=== PATIENT | female | born 1975 | race African-American/Black ===

== ENCOUNTER 2021-10-09 14:54 | Emergency (ER) | payer OTHER ==
[~2021-10-09] VITALS: Ht 150 cm; Wt 72.0 kg
--- NOTE | 2021-10-09 15:53 | ED Cough/URI ---
General Chief Complaint: COVID19 Suspect/Confirmed Stated Complaint: CHILLS/MUSCLE PAIN/HEADACHE/LOSS OF TASTE/SMELL Nursing Triage Note: PT AMB TO TRIAGE W C/O [place]ACOCK, CHILLS, LOSS OF TASTE AND SMELL, COUGH, AND CONGESTION SX MONDAY. PT REPORTS SHE WAS EXPOSED TO COVID ON 09/30/21. PT A&OX4. Source: patient Exam Limitations: no limitations (GLORIA WYATT APRN) History of Present Illness Date Seen by Provider: Oct 09, 2021 Time Seen by Provider: 15:52 Initial Comments To ER with headache chills loss of taste smell and cough after exposure to positive Covid patient. Her symptoms began on 10/05/2021. She is unvaccinated. Timing/Duration: constant Severity/Quality: moderate Associated Symptoms: cough, fever/chills, muscle aches (GLORIA WYATT APRN) Allergies and Home Medications Allergies Coded Allergies: No Known Drug Allergies (Unverified , 10/09/21) Patient Home Medication List Home Medication List Reviewed: Yes (GLORIA WYATT APRN) Review of Systems Review of Systems Constitutional: see HPI, chills, fever, malaise, weakness EENTM: see HPI, nose congestion Respiratory: no symptoms reported Cardiovascular: no symptoms reported Genitourinary: no symptoms reported Musculoskeletal: see HPI, muscle pain Skin: no symptoms reported Psychiatric/Neurological: No Symptoms Reported Hematologic/Lymphatic: No Symptoms Reported (GLORIA WYATT APRN) Past Nvheyxz-Jjblog-Uriuqm Hx Patient Social History Tobacco Use?: No Use of E-Cig and/or Vaping dev: No Substance use?: No Alcohol Use?: No (GLORIA WYATT APRN) Immunizations Up To Date Influenza Vaccine Up-to-Date: No; Not Current First/Initial COVID19 Vaccinat: NONE Second COVID19 Vaccination Evaristo: NONE Third COVID19 Vaccination Date: NONE COVID19 Vaccine Front Office Java Developer: NONE (GLORIA WYATT APRN) Physical Exam Vital Signs - First Documented 10/09/21 15:04 Temp 37.5 Pulse 85 Resp 22 B/P (MAP) 135/78 (97) Pulse Ox 96 O2 Delivery Room Air (LENNY CUELLO DO) Capillary Refill : (GLORIA WYATT APRN) Height: '" Weight: lbs. oz. kg; 32.00 BMI Method: General Appearance: WD/WN, no apparent distress, other (Heart rate 96% room air) Neck: non-tender, full range of motion Respiratory: normal breath sounds, no respiratory distress, no accessory muscle use Cardiovascular: regular rate, rhythm, no murmur Gastrointestinal: normal bowel sounds, non tender, soft Neurologic/Psychiatric: alert, normal mood/affect, oriented x 3 Skin: normal color, warm/dry (GLORIA WYATT APRN) Progress/Results/Core Measures Suspected Sepsis SIRS Temperature: Pulse: 85 Respiratory Rate: 22 Blood Pressure 135 /78 Mean: 97 (GLORIA WYATT APRN) Results/Orders Lab Results Laboratory Tests Test 10/09/21 15:08 Range/Units Influenza Type A (RT-PCR) Not Detected Not Detecte Influenza Type B (RT-PCR) Not Detected Not Detecte SARS-CoV-2 RNA (RT-PCR) Detected H Not Detecte (LENNY CUELLO DO) Vital Signs/I&O 10/09/21 10/09/21 15:04 16:15 Temp 37.5 37.5 Pulse 85 75 Resp 22 20 B/P (MAP) 135/78 (97) 123/71 Pulse Ox 96 97 O2 Delivery Room Air Room Air (LENNY CUELLO DO) Vital Signs/I&O Capillary Refill : (GLORIA WYATT APRN) Blood Pressure Mean: 97 Departure Communication (Admissions) I discussed with her the monoclonal antibody infusion and she would like to proceed with getting this scheduled. I discussed with her that this is emergency use authorization by the FDA, benefits of treatment and alternatives to use. Discussed with her that today is Monday but they will be doing these on Monday. She will need to be quarantined until 10 days after symptom onset meaning she could go back out into the public and/or to work on 10/16/2021. (GLORIA WYATT APRN) Impression Primary Impression: COVID-19 Disposition: 01 HOME, SELF-CARE Condition: Stable Departure-Patient Inst. Decision time for Depature: 15:52 (GLORIA WYATT APRN) Patient Instructions: COVID-19 ED Add. Discharge Instructions: 1. Use Tylenol and ibuprofen for pain control. Expect fevers to come intermittently. Return to ER for any worsening. Nausea medication as needed. Hospital pharmacy department will call you on Monday with an appointment time either Monday or for the antibody infusion. Return to ER for any worsening. Quarantine until 10/15/2021 meaning you can go back out into the public and/or to work on 10/16/2021. Also, you are able to get vaccinated as soon as you are out of quarantine which would be 10/16/2021. All discharge instructions reviewed with patient and/or family. Voiced understanding. Work/School Note: Work Release Form Date Seen in the Emergency Department: Oct 09, 2021 Return to Work: Oct 16, 2021 ATTENDING PHYSICIAN NOTE: I WAS PHYSICALLY PRESENT ER PHYSICIAN WHEN THIS PATIENT WAS IN ER, BUT I WAS NOT INVOLVED IN ANY DECISION MAKING OR ANY CARE OF THIS PATIENT. (LENNY CUELLO DO) GLORIA WYATT APRN Oct 09, 2021 15:53 LENNY CUELLO DO Oct 10, 2021 06:04
[2021-10-09] MEDS ORDERED: RX-ONDANSETRON 4 MG ODT (ZOFRAN) PPK #4 PO STA (15:58)
[2021-10-09 16:15] VITALS: BP 123/71
== END 2021-10-09 16:15 | disposition home or self-care (01) ==
LOC: ER 14:58
DX: U07.1 COVID-19 (principal)
CPT/HCPCS: 87636; 99283

== ENCOUNTER → 2021-11-23 | Outpatient (CLI) | payer OTHER ==
[~2021-11-23] MED LIST: CATHETER FLUSH 10 ML SYR IV PRN; HOLD METFORMIN - RECEIVED CONTRAST 20 ML VIAL IV SCH; IOHEXOL 350 MG/ML 100 ML (OMNIPAQUE 350) VIAL IV ONE; NS 100 ML (IVPB) BAG IV ONE
--- NOTE | 2021-11-23 17:13 | Diagnostic Imaging Report ---
EXAMINATION: CT pelvis with intravenous contrast. TECHNIQUE: Multiple contiguous axial images were obtained through the pelvis after the uneventful administration of intravenous contrast. All CT scans use one or more of the following dose optimizing techniques: automated exposure control, MA and/or KvP adjustment based on patient size and exam type or iterative reconstruction. HISTORY: Sonogram showing possible septation in the bladder. COMPARISON: None available. FINDINGS: There is a septated 6.3 x 5.2 cm right adnexal cyst. An intrauterine device is present. There is no hydronephrosis. Urinary bladder is normal. Visualized bowel is normal in caliber without obstruction or inflammation. There is a small amount of free fluid in the pelvis. There is a tiny fat-containing umbilical hernia. No pelvic lymphadenopathy. Aorta is normal in caliber without aneurysm. There are no suspicious osseus lesions. IMPRESSION: 1. Normal urinary bladder. 2. There is a large right adnexal cyst with internal septations. This may be the structure that was identified on the sonogram. Gynecologic evaluation recommended as this could represent an ovarian neoplasm due to its size and complexity. Dictated by: Dictated on workstation # [id number]
== END ==
LOC: RAD 14:45
PROVIDERS: ATTEND Family Medicine
DX: N83.8 Other noninflammatory disorders of ovary, fallopian tube and broad ligament (principal)
CPT/HCPCS: 72193

== ENCOUNTER → 2021-12-21 | Outpatient (CLI) | payer OTHER ==
[~2021-12-21] MED LIST changes: -CATHETER FLUSH 10 ML SYR IV PRN; +GADOTERATE 0.5 MMOL/ML (CLARISCAN) 15 ML VIAL IV ONE; -HOLD METFORMIN - RECEIVED CONTRAST 20 ML VIAL IV SCH; -IOHEXOL 350 MG/ML 100 ML (OMNIPAQUE 350) VIAL IV ONE; -NS 100 ML (IVPB) BAG IV ONE
--- NOTE | 2021-12-21 12:04 | Diagnostic Imaging Report ---
PROCEDURE: MRI pelvis with and without contrast. TECHNIQUE: Multiplanar, multisequence MRI of the pelvis was performed with and without contrast. INDICATION: Adnexal mass. COMPARISON: CT pelvis from 11/23/2021. FINDINGS: The previously noted right adnexal septated cystic mass has resolved and was likely an ovarian cyst. The right ovary measures 3.8 x 2.7 x 3.5 cm and has two simple cysts/follicles within it. The left ovary measures 2.6 x 3.8 x 2.8 cm and has a single simple follicle within it. There is no concerning adnexal mass. There is a simple cyst within the anterior pelvis that sits in front of the uterus and upon the urinary bladder. This has homogeneous T2 hyperintensity, thin imperceptible wall, and no enhancement. This cystic mass measures 6.6 x 7.0 x 4.7 cm. Due to its close proximity to the urinary bladder, this likely accounted for the apparent septation within the urinary bladder. There is an additional simple-appearing cystic structure within the cul-de-sac located along the posterior aspect of the uterus and adjacent to the colon. This structure measures 4.9 x 2.4 x 2.3 cm and has no mural enhancement or septations. The uterus measures 10.0 x 4.7 x 6.5 cm. No concerning mass within the myometrium. There are a few hypoenhancing intramural masses that are likely fibroids. The largest is in the posterior aspect of the uterine body and measures 2.3 x 2.3 cm. The endometrium measures 0.8 cm in thickness. Normal thickness of the T2 hypointense junctional zone. Multiple nabothian gland cysts are present. No lymphadenopathy. No abnormality within the osseous structures of the pelvis. IMPRESSION: 1. No adnexal mass that would indicate neoplasm. The previously noted right adnexal septated mass has resolved and was a complicated ovarian cyst. 2. There are two separate simple cysts located within the pelvis. The largest located in the anterior pelvis in front of the uterus and sitting upon the urinary bladder. This has no enhancing solid components and is most likely a benign process such as an intraperitoneal inclusion cyst. The other cyst with the same imaging characteristics is located within the cul-de-sac. Dictated by: Dictated on workstation # [id number]
== END ==
LOC: RAD 08:00
PROVIDERS: ATTEND Obstetrics & Gynecology
DX: N94.89 Other specified conditions associated with female genital organs and menstrual cycle (principal); N83.209 Unspecified ovarian cyst, unspecified side
CPT/HCPCS: 72197

== ENCOUNTER 2022-01-31 05:29 | Outpatient (CLI) | payer OTHER ==
[~2022-01-31] VITALS: Ht 149.9 cm; Wt 72.7 kg
[2022-02-02] MEDS ORDERED: ZPR40C PO (11:13)
[2022-02-02] MEDS ORDERED: SERT150C PO (11:13)
[2022-02-07] MEDS ORDERED: IBUP-844 PO (08:03)
[2022-02-07] MEDS ORDERED: BENZ1LOZ61 MM (08:03)
[2022-02-07] MEDS ORDERED: DOCU100C37 PO (08:03)
[2022-02-07] MEDS ORDERED: HYDR-34 PO (08:03)
[2022-02-07] MEDS ORDERED: SMT80CT PO (08:03)
== END 2022-02-02 10:56 | disposition home or self-care (01) ==
LOC: PREOP 05:29
PROVIDERS: ATTEND Obstetrics & Gynecology
DX: Z01.818 Encounter for other preprocedural examination (principal)

== ENCOUNTER 2022-02-07 06:19 | Day surgery (SDC) | payer OTHER ==
[2022-02-07] VITALS (11 sets, daily range): BP systolic 101–119; BP diastolic 60–83
[~2022-02-07] VITALS: Ht 149.9 cm; Wt 72.7 kg
[~2022-02-07 06:19] MED LIST changes: -GADOTERATE 0.5 MMOL/ML (CLARISCAN) 15 ML VIAL IV ONE; +SERT150C PO; +ZPR40C PO
[2022-02-07] MEDS ORDERED: metroNIDAZOLE 500MG/100ML IVPB 100 ML IV ONE (06:30)
[2022-02-07] MEDS ORDERED: ceFAZolin 2 GM IV Premixed 50 ML IV ONE (06:30)
[2022-02-07] MEDS: LACTATED RINGERS 1,000 ML IV PRN ×2 (06:54→08:54)
[2022-02-07] MEDS ORDERED: BUPIVACAINE 0.25% 10 ML (SENSORCAINE) VIAL ONE (07:01)
[2022-02-07 07:05] LABS: BASOPHILS % (AUTO) 0 % (0-10); EOSINOPHILS % (AUTO) 0 % (0-10); HEMATOCRIT 31 % (35-52); HEMOGLOBIN 9.6 g/dL (11.5-16.0); LYMPHOCYTES # (AUTO) 1.6 10^3/uL (1.0-4.0); LYMPHOCYTES % (AUTO) 36 % (12-44); MEAN CORPUSCULAR HEMOGLOBIN 21 pg (25-34); MEAN CORPUSCULAR HGB CONC 31 g/dL (32-36); MEAN CORPUSCULAR VOLUME 69 fL (80-99); MEAN PLATELET VOLUME 10.9 fL (9.0-12.2); MONOCYTES # (AUTO) 0.6 10^3/uL (0.0-1.0); MONOCYTES % (AUTO) 13 % (0-12); NEUTROPHILS # (AUTO) 2.3 10^3/uL (1.8-7.8); NEUTROPHILS % (AUTO) 50 % (42-75); PLATELET COUNT 295 10^3/uL (130-400); WHITE BLOOD COUNT 4.5 10^3/uL (4.3-11.0)
[2022-02-07] MEDS ORDERED: LIDOCAINE PF 2% 5 ML (XYLOCAINE) VIAL ONE (07:35)
[2022-02-07] MEDS ORDERED: MIDAZOLAM 2 MG/2 ML (VERSED) VIAL ONE (07:35)
[2022-02-07] MEDS ORDERED: SEVOFLURANE (ULTANE) 15 ML INHAL SOLN ONE ×2 (07:35→09:50)
[2022-02-07] MEDS ORDERED: ONDANSETRON 4 MG/2 ML (SDV) Z0FRAN ONE (07:35)
[2022-02-07] MEDS ORDERED: HYDROmorphone 2 MG/ML VIAL (DILAUDID) ONE (07:35)
[2022-02-07] MEDS ORDERED: ROCURONIUM 10 MG/ML 5 ML SYRINGE IV ONE (07:35)
[2022-02-07] MEDS ORDERED: proPOfol 200 MG/20 ML (DIPRIVAN) VIAL IV ONE (07:35)
--- NOTE | 2022-02-07 07:58 | Progress Note-Pre Operative ---
Pre-Operative Progress Note H&P Reviewed The H&P was reviewed, patient examined and no changes noted. Date Seen by Provider: Feb 07, 2022 Time Seen by Provider: 07:50 Date H&P Reviewed: Feb 07, 2022 Time H&P Reviewed: 07:45 Pre-Operative Diagnosis: Pelvic Cyst, Menorrhagia ÁNGEL JUSTICE DO Feb 07, 2022 07:58
[2022-02-07] MEDS ORDERED: HYDROmorphone 2 MG/ML VIAL (DILAUDID) IV PRN (08:00)
[2022-02-07] MEDS ORDERED: CHLORASEPTIC LOZENGE MM PRN (08:00)
[2022-02-07] MEDS ORDERED: HYDROcodone/APAP 7.5 MG/325 MG (LORTAB, LORCET PLUS) TABLET PO PRN (08:00)
[2022-02-07] MEDS ORDERED: KETOROLAC 30 MG/ML VIAL IVP PRN (08:00)
[2022-02-07] MEDS ORDERED: SIMETHICONE 80 MG (MYLICON) CHEW PO PRN (08:00)
[2022-02-07] MEDS ORDERED: DOCUSATE SODIUM 100 MG (COLACE) CAP PO PRN (08:00)
[2022-02-07] MEDS ORDERED: ONDANSETRON 4 MG/2 ML (SDV) Z0FRAN IV PRN (08:00)
[2022-02-07] MEDS ORDERED: NALOXONE 0.4 MG/ML 1 ML (NARCAN) VIAL IV PRN (08:00)
[2022-02-07] MEDS ORDERED: ANTACID SUSP 30 ML UDC (MYLANTA) PO PRN (08:00)
[2022-02-07] MEDS ORDERED: ZOLPIDEM 5 MG (AMBIEN) TAB PO PRN (08:00)
--- NOTE | 2022-02-07 08:01 | Discharge Inst-Women's Service ---
Discharge Inst-Women's Serv Depart Medication/Instructions New, Converted or Re-Newed RX: Transmitted to Pharmacy Problems Reviewed?: Yes Consults/Follow Up Additional Follow Up: Yes Orders/Referrals Dr. Camejo/Tomeka in 7-[address] Camejo in 8 weeks Activity Activity: Activity as Tolerated Driving Instructions: No Driving for 1 Week NO SMOKING: NO SMOKING Nothing Inside Vagina: No Douching, No [place], No Tampons Diet Discharge Diet: No Restrictions Symptoms to Report to : Bleeding Excessive, Pain Increased, Fever Over 101 Degrees F, Vaginal Bleeding Increase, Questions/Concerns For Any Problems or Questions: Contact Your Physician Skin/Wound Care Infection Signs and Symptoms: Increased Redness, Foul Odor of Wound, Increased Drainage, Skin Itchy or Has a Rash, Increased Swelling, Temperature Above 101 F Operative Area Clean and Dry: Keep Incision Clean/Dry Stitches/[place]/Dermabond: Dermabond, Care of Stitches Bathing Instructions: ÁNGEL Smallwood DO Feb 07, 2022 08:01
[2022-02-07] MEDS ORDERED: BENZ1LOZ61 MM (08:03)
[2022-02-07] MEDS ORDERED: DOCU100C37 PO (08:03)
[2022-02-07] MEDS ORDERED: HYDR-34 PO (08:03)
[2022-02-07] MEDS ORDERED: IBUP-844 PO (08:03)
[2022-02-07] MEDS ORDERED: SMT80CT PO (08:03)
[2022-02-07] MEDS ORDERED: fentaNYL INJ 100 MCG/2 ML AMP ONE (08:16)
[2022-02-07] MEDS: LACTATED RINGERS 1,000 ML IV SCH ×3 (08:54→11:40)
[2022-02-07] MEDS ORDERED: KETOROLAC 30 MG/ML VIAL ONE (08:55)
[2022-02-07] MEDS ORDERED: GLYCOPYRROLATE 0.2 MG/ML (ROBINUL) 2 ML VIAL ONE (09:33)
[2022-02-07] MEDS ORDERED: NEOSTIGMINE 3 MG/3 ML VIAL ONE (09:33)
[2022-02-07] MEDS ORDERED: ONDANSETRON 4 MG/2 ML (SDV) Z0FRAN IVP PRN (10:15)
[2022-02-07] MEDS ORDERED: MEPERIDINE (DEMEROL) INJ 50 MG/ML IVP ONE (10:15)
[2022-02-07] MEDS ORDERED: HYDROmorphone 2 MG/ML VIAL (DILAUDID) IV ONE (10:15)
[2022-02-07] MEDS ORDERED: PROMETHAZINE INJ 25 MG/ML (PHENERGAN) AMP IVP ONE (10:15)
[2022-02-07] MEDS ORDERED: morphine INJ 10 MG/ML 1ML (SYR OR VIAL) IVP ONE (10:15)
--- NOTE | 2022-02-07 19:24 | OPERATIVE REPORT ---
DATE OF SERVICE: PREOPERATIVE DIAGNOSES: 1. A 46-year-old female with fibroid uterus. 2. Enlarged uterus. 3. Abnormal uterine bleeding. 4. Pelvic cyst. POSTOPERATIVE DIAGNOSES: 1. A 46-year-old female with fibroid uterus. 2. Enlarged uterus. 3. Abnormal uterine bleeding. 4. Pelvic cyst 5. Extensive filmy adhesions of the pelvic peritoneum. PROCEDURE: 1. Robotic-assisted total laparoscopic hysterectomy with bilateral salpingectomy and left oophorectomy, uterus weighing greater than 250 grams. 2. Lysis of adhesions, taking 30 minutes. SURGEON: Arturo Justice DO MACHINE STITCHER: Tomeka Shea DNP, was necessary for manipulation and retraction throughout the procedure. SPECIMEN SENT: Uterus, bilateral fallopian tubes, left ovary, and pelvic peritoneal cyst. INDICATIONS FOR PROCEDURE: This 46-year-old female patient who is consulted to our office for evaluation of heavy periods and a CT showing a pelvic cystic mass on MRI. This revealed a cystic mass in the anterior cul-de-sac, which was potentially concerning for neoplasm or malignancy. However, it did not appear to be associated with the adnexa on MRI. I discussed with the patient and her followup after the MRI proceeding with hysterectomy as she was wishing to do so due to her bleeding issues. No matter what the imaging showed as far as the cystoscope. She has had dealt with heavy bleeding issues for years and had tried other conservative alternative measures and wished to proceed with more definitive treatment for this. Risks of the procedure were discussed with the patient in detail including risk of bleeding, infection, damage to surrounding structures including, but not limited to bowel, bladder, ureter, kidneys, possible need for reoperation, postoperative complications that may occur, recovery timeframe, hospital stay, risk from anesthesia and even . After everything was discussed with the patient in detail, consent was obtained, the patient was taken to the operating room. OPERATIVE REPORT IN DETAIL: Once in the operating room, anesthesia was found to be adequate. She was placed in the dorsal lithotomy position and prepped and draped in normal sterile fashion where a timeout was performed. A Lopez catheter was placed using sterile technique. A weighted speculum was inserted to the patient's vagina. Right angle retractor was used to visualize the cervix, which an 0 Vicryl suture was placed anterior lip of the cervix and using my retraction with the suture. I then gently sound the uterine cavity, was found to be 8 cm. I selected an 8 cm Brina uterine manipulator tip and a 3.5 cm colpotomy ring. The manipulator tip was advanced into the uterus and the balloon was deployed and the colpotomy ring advanced around the vaginal fornix after which an excellent manipulation is noted on bimanual exam. I performed a change of gloves and took my attention to the abdomen, where subcostally at the midclavicular line. On the left side, I introduced the Veress needle until intraperitoneal placement was confirmed using saline drop test. An opening pressure of 4 mmHg was noted, proceeded to maximum pressure of 15 mmHg using CO2 gas, at which point I made an area of the infraumbilical skin infiltrated using 0.25% Marcaine and make an 8 mm incision with a knife and directed a da Demarco camera trocar through the incision, intraperitoneal placement until intraperitoneal placement was confirmed using the da Demarco laparoscope. There was no evidence of damage upon my trocar entry site or the Veress entry site, at which point the Veress needle was removed. I then placed two lateral trocars approximately 8 cm lateral to my infraumbilical trocar. Once both of these trocars were in place, I had the patient placed in steep Trendelenburg and made visualize all my pelvic anatomy as defined in my findings above. I then brought in the da Demarco robot and docked in appropriate fashion placing the SynchroSeal device in left hand and monopolar kiara in the right hand. I began by taking down multiple filmy adhesions of the posterior cul-de-sac and the anterior cul-de-sac using the EndoShears. There are some vascular adhesions that had to be taken down. Once these were taken down, I can identify all my anatomic planes correctly. On the right side, I identified the ovary to be completely normal on the right. In the left side, there are multiple cystic masses and adhesions associated with that left ovary. Therefore, determined that point, I am going to remove it. So on the right side, I started at the uteroovarian ligament, I sealed and transected using the SynchroSeal device. I then took my dissection down the mesosalpinx amputating the fallopian tube from its surrounding blood supply. The round ligament was then sealed and transected using the SynchroSeal. This allows me to grasp the entire broad ligament, which I sealed and transected using the SynchroSeal device down to the level of the lower uterine segment, at which point I the anterior and posterior leaflets. Anterior leaflet dissection was taken around the anterior vaginal fornix and posterior leaflets was taken around to the posterior vaginal fornix. This allows me to skeletonize the uterine vessels laterally, which I sealed and transected using the SynchroSeal device. On the left side, I started at the IP ligament, which I sealed and transected using the SynchroSeal device after I identified the ureter and see that I am clear of its path. I then took my IP ligament dissection up to the round ligament, which I sealed and transected using the SynchroSeal device. I then grasped the entire broad ligament, which I sealed and transected using the SynchroSeal device down to the level of the lower uterine segment, at which point I the anterior and posterior leaflets and dissected around to the other side dissection point. This allows me to skeletonize the uterine vessels on the left side and sealed and transecting using the SynchroSeal device. I then created a colpotomy at 12 o'clock position using monopolar kiara and took this circumferentially around the vaginal fornix amputating the cervix away from the vagina. The entire specimen was then removed through the vagina. There are two large peritoneal cysts that are clear and smooth and the posterior cul-de-sac. These were both removed through the vagina and sent as peritoneal pelvic cyst. I then closed the lateral vaginal apices of the vaginal cuff using 2-0 Vicryl suture in a [id number] fashion colposuspending them to the uterosacral ligaments. I closed the remainder of the vaginal cuff using 2-0 V-Loc in a running fashion, after which there was no active bleeding noted from any of my dissection planes. I then undocked the da Demarco robot and proceeded with remainder of the case laparoscopically. I copiously irrigated the pelvis using normal saline. Once again, there was no active bleeding noted from any of my dissection planes. I placed Surgiflo hemostatic agent over all my planes of dissection to ensure excellent postoperative hemostasis. I then had the patient taken out of steep Trendelenburg where I removed the lateral trocars under direct visualization of the laparoscope and infraumbilical trocars left in place to release insufflation and to introduce 10 mL of 0.25% Marcaine into peritoneal cavity for postoperative pain management. I then removed this trocar as well. The skin reapproximated using 4-0 Monocryl in interrupted subcuticular stitches. Dermabond was applied to incision and sterile dressing with adhesive white tape. Lopez catheter was left in place. The patient tolerated the procedure well and sent to recovery area in stable condition. Lap and sponge count was correct at the end of the procedure. Instrument counts correct as well. Two grams of Ancef, 500 mg of Flagyl were given preoperatively for infection prophylaxis. Job ID: [id number] DocumentID: [id number] Dictated Date: 02/07/2022 10:33:22 Lumber Handler Date: 02/07/2022 19:23:51 Dictated By: ARTURO JUSTICE DO
[2022-02-08] MEDS ORDERED: IBUPROFEN 600 MG (MOTRIN) TAB PO SCH (08:00)
--- NOTE | 2022-02-08 13:45 | Anesthesia-General Post-Op ---
General Patient Condition Mental Status/LOC: Same as Preop Cardiovascular: Satisfactory Nausea/Vomiting: Absent Respiratory: Satisfactory Pain: Controlled Complications: Absent Post Op Complications Complications None Follow Up Care/Instructions Patient Instructions None needed. Anesthesia/Patient Condition Patient Condition Patient is already discharged to home but she was doing well prior to her discharge with no complaints, stable vital signs, no apparent adverse anesthesia problems. No complications reported per nursing. IFEANYI GOFF DO Feb 08, 2022 13:45
== END 2022-02-07 17:02 | disposition home or self-care (01) ==
LOC: SDC 06:19 → WS 11:06 → SDC 17:02
PROVIDERS: ATTEND Obstetrics & Gynecology
DX: D25.1 Intramural leiomyoma of uterus (principal); N87.9 Dysplasia of cervix uteri, unspecified; N72 Inflammatory disease of cervix uteri; N88.8 Other specified noninflammatory disorders of cervix uteri; N80.0 Endometriosis of uterus; N83.8 Other noninflammatory disorders of ovary, fallopian tube and broad ligament; N83.02 Follicular cyst of left ovary; N92.0 Excessive and frequent menstruation with regular cycle; N83.12 Corpus luteum cyst of left ovary; N94.89 Other specified conditions associated with female genital organs and menstrual cycle; N73.6 Female pelvic peritoneal adhesions (postinfective); R19.00 Intra-abdominal and pelvic swelling, mass and lump, unspecified site; Z98.51 Tubal ligation status
CPT/HCPCS: 36415; 84703; 85025; 86850; 86900; 86901; 87081